=== PATIENT | male | born 1955 | race Caucasian/White ===

== ENCOUNTER 2018-11-27 13:23 | Emergency (ER) | payer SELFPAY, OTHER ==
[2018-11-27] MEDS: BACITRACIN 0.9 GM OINT TOP (15:28)
[2018-11-27] MEDS: DIPHTH/TET/ACEL PERTUSS (ADULT) 0.5 ML VIAL IM* (15:30)
[2018-11-27] MEDS: KETOROLAC 15 MG INJ IM (15:32)
== END 2018-11-27 15:08 | disposition home or self-care (01) ==
LOC: E/R 13:23
DX: S80.811A Abrasion, right lower leg, initial encounter (principal); W23.0XXA Caught, crushed, jammed, or pinched between moving objects, initial encounter; Y92.9 Unspecified place or not applicable; Z23 Encounter for immunization
CPT/HCPCS: 73590; 90471; 90715; 96372; 99284-25